=== PATIENT | male | born 1990 | race Two or more races ===

== ENCOUNTER 2025-02-15 08:40 | Emergency (ER) | payer MEDICAID, OTHER ==
[~2025-02-15] VITALS: Ht 182.9 cm; Wt 77.6 kg
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
[2025-02-15] MEDS: HYDROcodone-ACET 10/325MG TAB PO ONE (09:51)
[2025-02-15 09:52] VITALS: TEMP 98.7
[2025-02-15 10:01] LABS: Basophils # (auto) 0 10 ^3/uL (0-0.2); Basophils % (auto) 0.3 % (0.0-2.0); Eosinophils # (auto) 0.2 10 ^3/uL (0-0.8); Eosinophils % (auto) 3.1 % (0.0-7.0); Hematocrit 43.9 % (41.0-53.0); Lymphocytes # (auto) 1.9 10 ^3/uL (0.4-5.4); Mean Corpuscular Hemoglobin 31.3 pg (28.0-32.0); Mean Corpuscular Hgb Conc. 34.2 g/dL (32.0-36.0); Mean Corpuscular Volume 91.6 fL (80.0-100.0); Monocytes # (auto) 0.6 10 ^3/uL (0-1.3); Monocytes % (auto) 8.2 % (0.0-12.0); Neutrophils # (auto) 4.9 10 ^3/uL (1.6-8.6); Neutrophils % (auto) 63.4 % (37.0-80.0); Platelet Count (auto) 184 10^3/uL (140-450); Red Blood Cells 4.79 10^6/uL (4.5-5.90); Red Cell Distribution Width 12.9 % (11.8-14.3); White Blood Cell 7.7 10^3/uL (4.4-10.8)
[2025-02-15 10:02] LABS: Chloride 106 mmol/L (98-107); Potassium 3.9 mmol/L (3.5-5.1); Sodium 142 mmol/L (136-145)
[2025-02-15 10:03] LABS: Anion Gap 5 (5-15); Calcium 9.8 mg/dL (8.7-10.4); Carbon Dioxide 31 mmol/L (20-31)
[2025-02-15 10:08] LABS: Blood Urea Nitrogen 13 mg/dL (9-23)
[2025-02-15 10:09] LABS: Glucose 145 mg/dL (74-106)
[2025-02-15 11:37] LABS: Urine Amorphous Crystal FEW /hpf (None Seen); Urine Bacteria None Seen /hpf (None Seen); Urine Blood Negative /uL (Negative); Urine Clarity Turbid (Clear); Urine Protein, UAD Negative (Negative); Urine Specific Gravity 1.026 (1.001-1.035); Urine Squamous Epithelial Cell FEW /hpf (<5); Urine Urobilinogen 3 mg/dL (Negative); Urine WBC < 1 /HPF (0-3)
[2025-02-15 11:39] LABS: Urine Color Yellow (Yellow)
[2025-02-15 12:14] VITALS: BP 123/83; PULSE 68; RESP 15; O2SAT 98
== END 2025-02-15 12:16 | disposition home or self-care (01) ==
LOC: ER 08:40
DX: M79.18 Myalgia, other site (principal); K92.0 Hematemesis; R50.9 Fever, unspecified
CPT/HCPCS: 36415; 80048; 81001; 85025